=== PATIENT | male | born 1965 | race Two or more races ===

== ENCOUNTER 2019-03-21 09:39 | Emergency (ER) | payer MEDICAID ==
[~2019-03-21] VITALS: Ht 175.3 cm; Wt 115.7 kg
[2019-03-21 10:36] VITALS: BP 149/87
[2019-03-21] MEDS ORDERED: KETOROLAC TROMETH 60MG/2ML VIAL IM ONE (11:15)
== END 2019-03-21 11:52 | disposition home or self-care (01) ==
LOC: ER 09:39
DX: M25.561 Pain in right knee (principal); J45.909 Unspecified asthma, uncomplicated; E11.9 Type 2 diabetes mellitus without complications; E78.5 Hyperlipidemia, unspecified; I10 Essential (primary) hypertension
CPT/HCPCS: 29505; 73562; 82962; 96372; 99283; J1885

== ENCOUNTER 2022-04-19 15:40 | Emergency (ER) | payer MEDICAID ==
[2022-04-19 16:04] VITALS: BP 151/82
[2022-04-19] MEDS ORDERED: AMOX-277 PO (17:18)
[2022-04-19] MEDS ORDERED: PROM1SOL4 PO (17:18)
== END 2022-04-19 17:32 | disposition home or self-care (01) ==
LOC: ER 15:40
DX: H66.93 Otitis media, unspecified, bilateral (principal); J06.9 Acute upper respiratory infection, unspecified; I10 Essential (primary) hypertension; E11.9 Type 2 diabetes mellitus without complications; E78.5 Hyperlipidemia, unspecified; J45.909 Unspecified asthma, uncomplicated
CPT/HCPCS: 71046

== ENCOUNTER 2023-07-26 08:23 | Inpatient (IN) | payer MEDICAID ==
[~2023-07-26] VITALS: Ht 170.2 cm; Wt 97.0 kg
[~2023-07-26 08:23] MED LIST: AMOX875T4 PO; PROM1SOL4 PO
[2023-07-26] MEDS ORDERED: AZITHROMYCIN 500MG/ 250ML 250 ML IV ONE (09:00)
[2023-07-26] MEDS ORDERED: cefTRIAXone 1GM/50ML D5W 50 ML IV ONE (09:00)
[2023-07-26 09:20] LABS: Hematocrit 42.3 % (41.0-53.0); Hemoglobin 13.9 g/dL (13.5-17.5); Mean Corpuscular Hemoglobin 27.8 pg (28.0-32.0); Mean Corpuscular Hgb Conc. 32.8 g/dL (32.0-36.0); Mean Corpuscular Volume 84.8 fL (80.0-100.0); Red Blood Cells 4.99 10^6/uL (4.5-5.90); Red Cell Distribution Width 15.4 % (11.8-14.3)
[2023-07-26 09:27] LABS: Basophils % (manual) 0 (0.0-2.0); Blast Cells 0; Eosinophils % (manual) 0 (0-7); Myelocytes % 0; Promyelocytes % 0; Reactive Lymphocytes 0
[2023-07-26 09:33] LABS: INR 1.08 (0.9-1.15); Prothrombin Time 11.3 sec (9.3-11.8)
[2023-07-26 09:37] LABS: Alanine Aminotransferase 12 U/L (7-40); Alkaline Phosphatase 71 U/L (46-116); Anion Gap 11 (5-15); Aspartate Aminotransferase < 8 U/L (13-40); BUN/Creatinine Ratio 21.5 (10.0-20.0); Blood Urea Nitrogen 42 mg/dL (9-23); Calcium 9.4 mg/dL (8.5-10.1); Carbon Dioxide 23 mmol/L (20-30); Chloride 99 mmol/L (98-107); Glucose 203 mg/dL (74-106); Potassium 4.2 mmol/L (3.5-5.1); Sodium 133 mmol/L (136-145)
[2023-07-26 09:38] LABS: Albumin 4.3 g/dL (3.2-4.8); Bilirubin, Total 1.4 mg/dL (0.2-1.0); Total Protein 7.1 g/dL (5.7-8.2)
[2023-07-26 10:58] LABS: Band Neutrophils % (manual) 15; Lymphocytes % (manual) 7 (10.0-50.0); Metamyelocytes % 1; Monocytes % (manual) 8 (0-12)
[2023-07-26 10:59] LABS: Anisocytosis Slight; Platelet Estimate Adequate
[2023-07-26 10:59] LABS: Lactic Acid w/Reflex 2.7 mmol/L (0.4-2.0)
[2023-07-26] MEDS ORDERED: methylPREDNISolone SOD SUCC 125 MG/2 ML VL IV ONE (13:30)
[2023-07-26] MEDS ORDERED: IPRATROPIUM BROM 0.5 MG/2.5ML INH SOL NEB PRN (13:30)
[2023-07-26] MEDS ORDERED: SODIUM CHLORIDE 0.9% 2,000 ML IV ONE (13:30)
[2023-07-26] MEDS ORDERED: DEXTROSE (50%) 50ML SYRG IV PRN (13:45)
[2023-07-26] MEDS ORDERED: ALBUTEROL MEDNEB 2.5 mg/3ml NEB NEB PRN (13:45)
[2023-07-26] MEDS: methylPREDNISolone SOD SUCC 125 MG/2 ML VL IV SCH ×2 (14:00→21:36)
[2023-07-26] MEDS: SODIUM CHLORIDE 0.9% 1,000 ML IV SCH ×2 (14:30→21:35)
[2023-07-26 16:00] LABS: Urine Amorphous Crystal FEW /hpf (None Seen); Urine Bacteria NONE SEEN /hpf (None Seen); Urine Blood 1+ /uL (Negative); Urine Clarity HAZY (Clear); Urine Color Yellow (Yellow); Urine Protein, UAD 2+ (Negative); Urine Specific Gravity 1.018 (1.001-1.035); Urine Urobilinogen Normal (Negative); Urine WBC 3 /hpf (0 - 3); Urine pH 5.5 (5.0-8.0)
[2023-07-26 16:06] LABS: Creatinine, Urine 148.61 mg/dL (30.0-125.0)
[2023-07-26] MEDS: InsuLIN REG 1unit/0.01ml Soln (100units/ml) SC SCH ×2 (18:19→22:22)
[2023-07-26] MEDS: ACCU-CHEK COMFORT CURVE STRIP VI SCH ×2 (18:20→22:00)
[2023-07-26 21:00] VITALS: PULSE 79; RESP 17; O2SAT 94
[2023-07-26 21:23] VITALS: BP 104/59; PULSE 101; RESP 20; O2SAT 92
[2023-07-26] MEDS: ENOXAPARIN SOD 120 MG/0.8 ML SYRINGE SC SCH (22:00)
[2023-07-26 22:24] VITALS: O2SAT 91
[2023-07-26] MEDS ORDERED: VANCOMYCIN PER PHARMACY 0 MG IV SCH (23:30)
[2023-07-26] MEDS ORDERED: VANCOMYCIN 1GM/250ML 250 ML IV NR (23:45)
[2023-07-27 00:38] LABS: COVID19 ANTIGEN SOFIA FIA NEGATIVE (NEGATIVE)
[2023-07-27 00:39] LABS: Rapid Influenza A Negative (Negative); Rapid Influenza B Negative (Negative)
[2023-07-27 05:41] LABS: Basophils # (auto) 0 10 ^3/uL (0-0.2); Basophils % (auto) 0.1 % (0.0-2.0); Eosinophils # (auto) 0 10 ^3/uL (0-0.8); Eosinophils % (auto) 0.1 % (0.0-7.0); Hematocrit 39.5 % (41.0-53.0); Hemoglobin 12.9 g/dL (13.5-17.5); Lymphocytes # (auto) 0.8 10 ^3/uL (0.4-5.4); Lymphocytes % (auto) 5.9 % (10.0-50.0); Mean Corpuscular Hemoglobin 28.3 pg (28.0-32.0); Mean Corpuscular Hgb Conc. 32.7 g/dL (32.0-36.0); Mean Corpuscular Volume 86.6 fL (80.0-100.0); Monocytes # (auto) 0.9 10 ^3/uL (0-1.3); Neutrophils # (auto) 12.5 10 ^3/uL (1.6-8.6); Neutrophils % (auto) 87.9 % (37.0-80.0); Nucleated Red Blood Cells % 0.1 %; Red Blood Cells 4.56 10^6/uL (4.5-5.90); Red Cell Distribution Width 15.7 % (11.8-14.3); White Blood Cell 14.3 10^3/uL (4.4-10.8)
[2023-07-27 05:56] LABS: Anion Gap 9 (5-15); Carbon Dioxide 23 mmol/L (20-30); Chloride 100 mmol/L (98-107); Potassium 4.7 mmol/L (3.5-5.1); Sodium 132 mmol/L (136-145)
[2023-07-27 05:57] LABS: Calcium 9.3 mg/dL (8.7-10.4)
[2023-07-27 06:02] LABS: BUN/Creatinine Ratio 24.3 (10.0-20.0); Blood Urea Nitrogen 46 mg/dL (9-23)
[2023-07-27 06:08] VITALS: O2SAT 95
[2023-07-27] MEDS: methylPREDNISolone SOD SUCC 125 MG/2 ML VL IV SCH ×3 (06:08→21:45)
[2023-07-27] MEDS: ACCU-CHEK COMFORT CURVE STRIP VI SCH ×4 (06:30→21:53)
[2023-07-27] MEDS: InsuLIN REG 1unit/0.01ml Soln (100units/ml) SC SCH ×4 (06:32→22:00)
[2023-07-27] MEDS: SODIUM CHLORIDE 0.9% 1,000 ML IV SCH ×3 (06:33→21:30)
[2023-07-27 06:44] LABS: Glucose 415 mg/dL (74-106)
[2023-07-27] MEDS ORDERED: INSULIN LANTUS (GLARGINE) 1 /0.01ml (100units/ml) SC SCH (07:00)
[2023-07-27 08:00] VITALS: PULSE 84; RESP 24; O2SAT 93
[2023-07-27] MEDS: INSULIN LANTUS (GLARGINE) 1 /0.01ml (100units/ml) SC SCH ×2 (08:40→22:06)
[2023-07-27] MEDS ORDERED: cefTRIAXone 1GM/50ML D5W 50 ML IV SCH ×2 (09:00)
[2023-07-27] MEDS: VANCOMYCIN 750mg/250ml 250 ML IV SCH ×2 (10:08→21:45)
[2023-07-27] MEDS: ENOXAPARIN SOD 120 MG/0.8 ML SYRINGE SC SCH ×2 (10:11→21:53)
[2023-07-27] MEDS: AZITHROMYCIN 500MG/ 250ML 250 ML IV SCH (11:29)
[2023-07-27 16:00] VITALS: BP 142/81; PULSE 87; RESP 22; TEMP 98.4; O2SAT 92
[2023-07-27 16:31] VITALS: PULSE 97; RESP 22; O2SAT 92
[2023-07-27 20:00] VITALS: PULSE 114; PULSE 94; RESP 21; O2SAT 93
[2023-07-27 23:18] VITALS: BP 150/81; PULSE 94; RESP 21; TEMP 97.5; O2SAT 93
[2023-07-28] VITALS (11 sets, daily range): BP systolic 131–170; BP diastolic 63–89; PULSE 86–105; RESP 18–21; TEMP 97.5–98.6; O2SAT 91–98
[2023-07-28] MEDS: SODIUM CHLORIDE 0.9% 1,000 ML IV SCH ×2 (05:30→13:30)
[2023-07-28] MEDS: methylPREDNISolone SOD SUCC 125 MG/2 ML VL IV SCH ×3 (06:00→22:04)
[2023-07-28] MEDS: ACCU-CHEK COMFORT CURVE STRIP VI SCH ×5 (06:39→21:56)
[2023-07-28] MEDS: InsuLIN REG 1unit/0.01ml Soln (100units/ml) SC SCH ×3 (06:41→17:49)
[2023-07-28] MEDS: INSULIN LANTUS (GLARGINE) 1 /0.01ml (100units/ml) SC SCH ×2 (06:43→22:06)
[2023-07-28] MEDS: VANCOMYCIN 750mg/250ml 250 ML IV SCH ×2 (09:23→21:15)
[2023-07-28] MEDS: AZITHROMYCIN 500MG/ 250ML 250 ML IV SCH (11:26)
[2023-07-28] MEDS: ENOXAPARIN SOD 120 MG/0.8 ML SYRINGE SC SCH ×2 (11:27→22:04)
[2023-07-28] MEDS ORDERED: guaiFENesin-DM 100/10mg/5ml SYR PO SCH (14:00)
[2023-07-28] MEDS: cefTRIAXone 1GM/50ML D5W 50 ML IV SCH (14:08)
[2023-07-28] MEDS ORDERED: DEXTROSE (50%) 50ML SYRG IV PRN ×2 (16:45→23:45)
[2023-07-28] MEDS ORDERED: InsuLIN REG 1unit/0.01ml Soln (100units/ml) SC SCH ×2 (17:00→22:00)
[2023-07-28] MEDS: hydrALAZINE HCL 20 MG/ML VL IV PRN (19:00)
[2023-07-28 23:22] LABS: Urine Bacteria NONE SEEN /hpf (None Seen); Urine Blood Negative /uL (Negative); Urine Clarity Clear (Clear); Urine Color Colorless (Yellow); Urine Protein, UAD TRACE (Negative); Urine Specific Gravity 1.025 (1.001-1.035); Urine Urobilinogen Normal (Negative); Urine WBC 1 /hpf (0 - 3)
[2023-07-28 23:25] LABS: Protein, Urine 20.4 mg/dL (0.0-11.9)
[2023-07-28 23:28] LABS: Creatinine, Urine 37.46 mg/dL (30.0-125.0)
[2023-07-29] VITALS (10 sets, daily range): BP systolic 139–176; BP diastolic 65–96; PULSE 76–87; RESP 18–23; TEMP 97.5–98.4; O2SAT 91–99
[2023-07-29] MEDS: ACCU-CHEK COMFORT CURVE STRIP VI SCH ×6 (00:09→20:09)
[2023-07-29] MEDS: InsuLIN REG 1unit/0.01ml Soln (100units/ml) SC SCH ×6 (00:12→20:12)
[2023-07-29] MEDS: hydrALAZINE HCL 20 MG/ML VL IV PRN ×2 (04:44→11:53)
[2023-07-29] MEDS ORDERED: CLOP75TA70 PO (05:09)
[2023-07-29] MEDS ORDERED: METF-370 PO (05:09)
[2023-07-29] MEDS ORDERED: AMLO1TAB22 PO (05:09)
[2023-07-29] MEDS ORDERED: PIO30T GT (05:09)
[2023-07-29] MEDS ORDERED: ATOR10TA52 PO (05:09)
[2023-07-29] MEDS ORDERED: ASPI325T4 PO (05:09)
[2023-07-29] MEDS ORDERED: HYDR25TA4 PO (05:09)
[2023-07-29] MEDS ORDERED: ASPI-543 PO (05:09)
[2023-07-29 06:00] LABS: Hematocrit 42.1 % (41.0-53.0); Hemoglobin 13.9 g/dL (13.5-17.5); Mean Corpuscular Hemoglobin 27.8 pg (28.0-32.0); Mean Corpuscular Hgb Conc. 32.9 g/dL (32.0-36.0); Mean Corpuscular Volume 84.5 fL (80.0-100.0); Red Blood Cells 4.98 10^6/uL (4.5-5.90); Red Cell Distribution Width 15.5 % (11.8-14.3); White Blood Cell 15.4 10^3/uL (4.4-10.8)
[2023-07-29] MEDS: methylPREDNISolone SOD SUCC 125 MG/2 ML VL IV SCH ×3 (06:24→22:01)
[2023-07-29] MEDS: guaiFENesin-DM 100/10mg/5ml SYR PO PRN (06:25)
[2023-07-29] MEDS: INSULIN LANTUS (GLARGINE) 1 /0.01ml (100units/ml) SC SCH ×2 (06:26→22:11)
[2023-07-29 06:28] LABS: Band Neutrophils % (manual) 0; Basophils % (manual) 0 (0.0-2.0); Blast Cells 0; Eosinophils % (manual) 0 (0-7); Metamyelocytes % 0; Myelocytes % 0; Promyelocytes % 0; Reactive Lymphocytes 0
[2023-07-29 06:32] LABS: Anion Gap 9 (5-15); Carbon Dioxide 22 mmol/L (20-30); Chloride 101 mmol/L (98-107); Potassium 4.1 mmol/L (3.5-5.1); Sodium 132 mmol/L (136-145)
[2023-07-29 06:33] LABS: Calcium 9.2 mg/dL (8.7-10.4)
[2023-07-29 06:38] LABS: BUN/Creatinine Ratio 27.8 (10.0-20.0); Blood Urea Nitrogen 37 mg/dL (9-23)
[2023-07-29 06:45] LABS: Glucose 255 mg/dL (74-106)
[2023-07-29 08:21] LABS: Lymphocytes % (manual) 17 (10.0-50.0); Monocytes % (manual) 14 (0-12)
[2023-07-29 08:22] LABS: Platelet Estimate Adequate
[2023-07-29 08:29] LABS: Large Platelets FEW; RBC Morphology Normal
[2023-07-29] MEDS: ENOXAPARIN SOD 120 MG/0.8 ML SYRINGE SC SCH (08:50)
[2023-07-29] MEDS ORDERED: VANCOMYCIN 1GM/250ML 250 ML IV SCH (09:00)
[2023-07-29] MEDS: AZITHROMYCIN 500MG/ 250ML 250 ML IV SCH (11:28)
[2023-07-29] MEDS: cefTRIAXone 1GM/50ML D5W 50 ML IV SCH (12:38)
[2023-07-29] MEDS ORDERED: DEXTROSE (50%) 50ML SYRG IV PRN (22:00)
[2023-07-29] MEDS: ATORVASTATIN 20 MG TAB PO SCH (22:01)
[2023-07-30] VITALS (9 sets, daily range): BP systolic 125–171; BP diastolic 64–92; PULSE 69–83; RESP 18–22; TEMP 97.5–98.1; O2SAT 93–96
[2023-07-30] MEDS: ACCU-CHEK COMFORT CURVE STRIP VI SCH ×6 (00:08→21:17)
[2023-07-30] MEDS: InsuLIN REG 1unit/0.01ml Soln (100units/ml) SC SCH ×6 (00:11→21:14)
[2023-07-30] MEDS: hydrALAZINE HCL 20 MG/ML VL IV PRN (00:14)
[2023-07-30] MEDS: methylPREDNISolone SOD SUCC 125 MG/2 ML VL IV SCH ×2 (06:23→13:40)
[2023-07-30] MEDS: INSULIN LANTUS (GLARGINE) 1 /0.01ml (100units/ml) SC SCH ×2 (06:33→21:17)
[2023-07-30] MEDS: ASPirin-EC 81 mg tab PO SCH (09:46)
[2023-07-30] MEDS: amLODIPine BESYLATE 5 MG TAB PO SCH (09:47)
[2023-07-30] MEDS: HCTZ 25 MG TAB PO SCH (09:47)
[2023-07-30] MEDS: ENOXAPARIN SOD 40 MG/0.4 ML SYRINGE SC SCH (09:47)
[2023-07-30] MEDS: CLOPIDOGREL BISULFATE 75 MG TAB PO SCH (09:47)
[2023-07-30] MEDS: AZITHROMYCIN 500MG/ 250ML 250 ML IV SCH (09:48)
[2023-07-30 12:54] LABS: Chloride 100 mmol/L (98-107); Sodium 130 mmol/L (136-145)
[2023-07-30 12:55] LABS: Anion Gap 7 (5-15); Carbon Dioxide 23 mmol/L (20-30)
[2023-07-30 12:56] LABS: Calcium 9.3 mg/dL (8.5-10.1)
[2023-07-30 13:01] LABS: Blood Urea Nitrogen 33 mg/dL (9-23); Glucose 333 mg/dL (74-106)
[2023-07-30] MEDS: cefTRIAXone 1GM/50ML D5W 50 ML IV SCH (13:41)
[2023-07-30] MEDS ORDERED: LOSARTAN POTASSIUM 50 MG TAB PO ONE (14:00)
[2023-07-30] MEDS: ATORVASTATIN 20 MG TAB PO SCH (21:15)
[2023-07-31] MEDS: InsuLIN REG 1unit/0.01ml Soln (100units/ml) SC SCH ×4 (00:01→11:54)
[2023-07-31] MEDS: ACCU-CHEK COMFORT CURVE STRIP VI SCH ×4 (00:03→11:56)
[2023-07-31 05:00] VITALS: BP 122/76; PULSE 70; RESP 18; TEMP 97.4; O2SAT 96
[2023-07-31 06:22] LABS: Anion Gap 7 (5-15); Calcium 8.9 mg/dL (8.7-10.4); Carbon Dioxide 26 mmol/L (20-30); Chloride 100 mmol/L (98-107); Potassium 4.1 mmol/L (3.5-5.1); Sodium 133 mmol/L (136-145)
[2023-07-31 06:28] LABS: BUN/Creatinine Ratio 25.6 (10.0-20.0); Blood Urea Nitrogen 34 mg/dL (9-23)
[2023-07-31 06:32] LABS: Glucose 147 mg/dL (74-106)
[2023-07-31] MEDS: guaiFENesin-DM 100/10mg/5ml SYR PO PRN (07:02)
[2023-07-31] MEDS: INSULIN LANTUS (GLARGINE) 1 /0.01ml (100units/ml) SC SCH (07:04)
[2023-07-31 08:00] VITALS: BP 115/64; PULSE 72; PULSE 75; RESP 18; TEMP 98; O2SAT 95
[2023-07-31] MEDS: ASPirin-EC 81 mg tab PO SCH (09:39)
[2023-07-31] MEDS: amLODIPine BESYLATE 5 MG TAB PO SCH (09:40)
[2023-07-31] MEDS: CLOPIDOGREL BISULFATE 75 MG TAB PO SCH (09:40)
[2023-07-31] MEDS: AZITHROMYCIN 500MG/ 250ML 250 ML IV SCH (09:40)
[2023-07-31] MEDS: ENOXAPARIN SOD 40 MG/0.4 ML SYRINGE SC SCH (09:40)
[2023-07-31] MEDS ORDERED: AZIT500T66 PO (09:59)
[2023-07-31] MEDS ORDERED: METH4PAK PO (09:59)
[2023-07-31] MEDS ORDERED: HYDR-4902 PO (09:59)
[2023-07-31] MEDS ORDERED: LOSARTAN POTASSIUM 50 MG TAB PO SCH (10:00)
[2023-07-31] MEDS: cefTRIAXone 1GM/50ML D5W 50 ML IV SCH (10:56)
[2023-07-31] MEDS: HCTZ 25 MG TAB PO SCH (10:57)
[2023-07-31 13:13] VITALS: BP 140/75; PULSE 89; RESP 18; TEMP 98; O2SAT 96
[2023-07-31 13:53] VITALS: BP 102/69; PULSE 82; RESP 16; TEMP 97.8; O2SAT 99
[2023-07-31] MEDS ORDERED: methylPREDNISolone SOD SUCC 125 MG/2 ML VL IV SCH ×2 (14:00)
== END 2023-07-31 14:35 | disposition home or self-care (01) | DRG 720 ==
LOC: ER 08:23 → EDBD 08:23 → TELE 13:31 → TELE-CENTR 07-27 16:00
PROVIDERS: ADMIT Nurse Practitioner Family; ATTEND Family Medicine
DX: A41.59 Other Gram-negative sepsis (principal); J96.01 Acute respiratory failure with hypoxia; J15.0 Pneumonia due to Klebsiella pneumoniae; N17.9 Acute kidney failure, unspecified; E87.1 Hypo-osmolality and hyponatremia; J45.909 Unspecified asthma, uncomplicated; E78.00 Pure hypercholesterolemia, unspecified; E11.22 Type 2 diabetes mellitus with diabetic chronic kidney disease; E66.9 Obesity, unspecified; I12.9 Hypertensive chronic kidney disease with stage 1 through stage 4 chronic kidney disease, or unspecified chronic kidney disease; N18.30 Chronic kidney disease, stage 3 unspecified; Z83.3 Family history of diabetes mellitus; Z86.16 Personal history of COVID-19; Z87.01 Personal history of pneumonia (recurrent); R79.89 Other specified abnormal findings of blood chemistry; Z86.711 Personal history of pulmonary embolism; Z20.822 Contact with and (suspected) exposure to COVID-19; Z68.33 Body mass index [BMI] 33.0-33.9, adult
CPT/HCPCS: 36415; 71045; 76775; 78582; 80048; 80053; 80202; 81001; 82570; 82962; 83036; 83605; 84156; 84300; 84484; 85007; 85025; 85027; 85379; 85610; 85730; 87040; 87070; 87077; 87186; 87205; 87426; 87804; 93970; 94640; 96365; G0378; J0696; J1815